=== PATIENT | male | born 1980 | race Caucasian/White ===

== ENCOUNTER 2018-05-11 00:07 | Emergency (ER) | payer MEDICAID ==
[~2018-05-11] VITALS: Ht 170.2 cm; Wt 95.5 kg
[2018-05-11 01:45] VITALS: BP 158/102
[2018-05-11] MEDS ORDERED: ONDANSETRON HCL 4 MG TABLET PO ONE (02:00)
[2018-05-11] MEDS ORDERED: OxyCODONE HCL/ACETAMINOPHEN 5-325 MG TABLET PO ONE (02:00)
== END 2018-05-11 03:13 | disposition home or self-care (01) ==
LOC: EMS 00:08
DX: S46.002A Unspecified injury of muscle(s) and tendon(s) of the rotator cuff of left shoulder, initial encounter (principal); I10 Essential (primary) hypertension; F17.210 Nicotine dependence, cigarettes, uncomplicated; X58.XXXA Exposure to other specified factors, initial encounter; Y93.89 Activity, other specified; Y92.89 Other specified places as the place of occurrence of the external cause; Y99.8 Other external cause status
CPT/HCPCS: 73030; 73080; 99284; Q0162